=== PATIENT | male | born 1955 | race Caucasian/White ===

== ENCOUNTER 2020-11-24 09:31 | Emergency (ER) | payer BC, OTHER ==
[2020-11-24 10:13] LABS: RED BLOOD COUNT 5.5 M/UL (4.20-5.50); WHITE BLOOD COUNT 11.5 K/UL (4.5-11.0)
[2020-11-24 10:32] LABS: BUN/CREATININE RATIO 16 (0-10)
== END 2020-11-24 11:12 | disposition home or self-care (01) ==
LOC: ER1 09:31
PROVIDERS: Physician Assistant
DX: M25.462 Effusion, left knee (principal); R31.9 Hematuria, unspecified; R60.0 Localized edema; I10 Essential (primary) hypertension
CPT/HCPCS: 73564; 80053; 81001; 85025; 99283